=== PATIENT | male | born 1985 | race Caucasian/White ===

== ENCOUNTER 2018-11-01 07:49 | Emergency (ER) | payer OTHER ==
[~2018-11-01] VITALS: Ht 175.3 cm; Wt 68.0 kg
[2018-11-01 07:49] VITALS: BP 132/74; Ht 175.3 cm; Wt 68.0 kg
== END 2018-11-01 09:07 | disposition other institution (70) ==
LOC: ED 07:49
DX: Z02.89 Encounter for other administrative examinations (principal)